=== PATIENT | female | born 1975 | race Hispanic/Latino ===

== ENCOUNTER 2024-08-12 16:18 | Emergency (ER) | payer BC ==
[~2024-08-12] VITALS: Ht 154.9 cm; Wt 74.8 kg
[~2024-08-12 16:18] MED LIST: AZITHROMYCIN250 MG PO; DEXAMETHASONE6 MG PO; MEDROL4 M2 PO
[2024-08-12 16:25] VITALS: PULSE 101; RESP 18; TEMP 97.9
[2024-08-12] MEDS: ACETAMINOPHEN 325 MG TAB PO STA (17:47)
[2024-08-12 18:09] LABS: STREPTOCOCCUS GRP A ANTIGEN NEGATIVE (NEGATIVE)
[2024-08-12 18:10] LABS: CORONAVIRUS COVID-19 AG NEGATIVE (NEGATIVE); INFLUENZA B AG NEGATIVE (NEGATIVE)
[2024-08-12 18:11] LABS: INFLUENZA A AG POSITIVE (NEGATIVE)
[2024-08-12] MEDS ORDERED: VENTOLIN HFA18 GM INH (18:16)
[2024-08-12] MEDS ORDERED: XOFLUZA80 MG PO (18:16)
[2024-08-12 18:22] VITALS: BP 135/88; PULSE 102; RESP 18; TEMP 98.8; O2SAT 97
[2024-08-12] MEDS ORDERED: TAMIFLU75 MG PO (23:54)
== END 2024-08-12 18:26 | disposition home or self-care (01) ==
LOC: ER 16:57
DX: R05.9 Cough, unspecified (principal); J10.1 Influenza due to other identified influenza virus with other respiratory manifestations; R53.81 Other malaise; E11.9 Type 2 diabetes mellitus without complications; J45.909 Unspecified asthma, uncomplicated; K21.9 Gastro-esophageal reflux disease without esophagitis
CPT/HCPCS: 71046; 83518; 87070; 99283